=== PATIENT | female | born 1950 | race African-American/Black ===

== ENCOUNTER 2021-02-07 09:25 | Outpatient (CLI) | payer MEDICARE, BC | END 2021-02-07 09:26 | disposition home or self-care (01) | LOC: BICMAMMO 09:25 | PROVIDERS: ATTEND Family Medicine | DX: Z12.31 Encounter for screening mammogram for malignant neoplasm of breast (principal); Z13.820 Encounter for screening for osteoporosis; M81.0 Age-related osteoporosis without current pathological fracture; Z91.89 Other specified personal risk factors, not elsewhere classified | CPT/HCPCS: 77063; 77067; 77080 ==

== ENCOUNTER 2022-03-12 11:04 | Outpatient (CLI) | payer MEDICARE, BC ==
[2022-03-12 23:15] LABS: SARS-CoV-2 PCR by NAA Not Detected (NotDetected)
== END 2022-03-12 11:05 | disposition home or self-care (01) ==
LOC: LABBT 11:04
PROVIDERS: ATTEND Internal Medicine Gastroenterology
DX: Z12.11 Encounter for screening for malignant neoplasm of colon (principal); Z20.822 Contact with and (suspected) exposure to COVID-19
CPT/HCPCS: U0003; U0005

== ENCOUNTER 2022-03-17 07:45 | Day surgery (SDC) | payer MEDICARE, BC ==
[2022-03-13 11:28] VITALS: BMI 40.3
[2022-03-17] MEDS ORDERED: PROPOFOL 200 MG/20 ML VIAL ONE (10:10)
== END 2022-03-17 11:17 | disposition home or self-care (01) ==
LOC: SDC 07:45
PROVIDERS: ATTEND Internal Medicine Gastroenterology
PROC: 0DBC8ZX Excision of Ileocecal Valve, Via Natural or Artificial Opening Endoscopic, Diagnostic (ICD-10-PCS; principal; 2022-03-17)
DX: Z12.11 Encounter for screening for malignant neoplasm of colon (principal); K63.89 Other specified diseases of intestine; K64.8 Other hemorrhoids; I10 Essential (primary) hypertension; R73.03 Prediabetes; E66.9 Obesity, unspecified; Z68.41 Body mass index [BMI] 40.0-44.9, adult; Z79.899 Other long term (current) drug therapy
CPT/HCPCS: 88305; J2704

== ENCOUNTER 2023-06-23 11:14 | Outpatient (CLI) | payer MEDICARE, BC | END 2023-06-23 11:15 | disposition home or self-care (01) | LOC: BICMAMMO 11:14 | PROVIDERS: ATTEND Family Medicine | DX: Z12.31 Encounter for screening mammogram for malignant neoplasm of breast (principal); Z91.89 Other specified personal risk factors, not elsewhere classified | CPT/HCPCS: 77063; 77067 ==